=== PATIENT | female | born 1945 | race Caucasian/White ===

== ENCOUNTER 2016-12-21 13:36 | Outpatient (CLI) | payer OTHER ==
[~2016-12-21 13:36] MED LIST: DULO20CA PO; LIP10 PO
== END 2016-12-21 18:53 | disposition home or self-care (01) ==
LOC: SMA 13:36
PROVIDERS: ATTEND Family Medicine
DX: Z12.31 Encounter for screening mammogram for malignant neoplasm of breast (principal)
CPT/HCPCS: G0202

== ENCOUNTER 2018-03-23 10:12 | Outpatient (CLI) | payer OTHER | END 2018-03-23 20:11 | disposition home or self-care (01) | LOC: SMA 10:12 | PROVIDERS: ATTEND Family Medicine | DX: Z12.31 Encounter for screening mammogram for malignant neoplasm of breast (principal) | CPT/HCPCS: 77067 ==

== ENCOUNTER 2019-10-19 10:25 | Outpatient (CLI) | payer OTHER | END 2019-10-19 19:58 | disposition home or self-care (01) | LOC: SMA 10:25 | PROVIDERS: ATTEND Family Medicine | DX: Z12.31 Encounter for screening mammogram for malignant neoplasm of breast (principal) | CPT/HCPCS: 77067 ==